=== PATIENT | female | born 1960 | race Caucasian/White ===

== ENCOUNTER → 2020-04-06 | Emergency (ER) | payer OTHER ==
[~2020-04-06] VITALS: Ht 167.6 cm; Wt 67.1 kg
[~2020-04-06] MED LIST: BENZONATATE100 MG PO; CLONAZEPAM0.5 M1 PO; COZAAR50 MG PO; MONTELUKAST SOD10 MG PO; SYNTHROID50 MCG PO
== END | disposition home or self-care (01) ==
LOC: ER 19:02
DX: R06.02 Shortness of breath (principal); F06.4 Anxiety disorder due to known physiological condition